=== PATIENT | female | born 1985 | race Caucasian/White ===

== ENCOUNTER 2016-09-30 12:54 | Observation (INO) | payer OTHER, MEDICAID ==
[2016-09-30] MEDS ORDERED: ONDANSETRON 4 MG/2 ML VIAL ONE ×2 (14:06→14:40)
--- NOTE | 2016-09-30 14:08 | EDPHY ---
H & P Stated Complaint: Started Metformin on Saturday and then w/ abd pain/ cramping Source: Patient Exam Limitations: No limitations - Personal History LMP (Females 10-55): 1-7 Days Ago Current Tetanus/Diphtheria Vaccine: Yes - Medical/Surgical History Hx Asthma: No Hx Chronic Respiratory Disease: No Hx Diabetes: Yes Hx Cardiac Disease: No Hx Renal Disease: No Hx Cirrhosis: No Hx Alcoholism: No Hx HIV/AIDS: No Hx Splenectomy or Spleen Trauma: No Other PMH: Ovarain cyst, - Social History Smoking Status: Never smoked Time Seen by Provider: 09/30/16 13:55 HPI/ROS: CHIEF COMPLAINT: Abdominal pain, HISTORY OF PRESENT ILLNESS: The patient is a 31-year-old female who presents with LUQ crampy non-radiating abdominal pain and tenesmus since last night. She was put on Metformin ER on Saturday and is concerned this is causing the symptoms. She initially felt nauseated and had diarrhea after starting the medication and developed the pain late last night. She admits recent sick contact from family members. LNMP last week. She denies fever, chest pain, shortness of breath. REVIEW OF SYSTEMS: Aside from elements discussed in the HPI, a comprehensive 10-point review of systems was reviewed and is negative. PAST MEDICAL HISTORY: GERD, cholecystectomy, scoliosis, ovarian cyst. SOCIAL HISTORY: Here with family. VITAL SIGNS: Reviewed by me GENERAL: Well-developed, well-nourished, resting comfortably in no respiratory distress. HEENT: Atraumatic. Eyes: No icterus, no injection. Mouth: moist mucous membranes. No erythema or lesions. Neck: supple with no adenopathy. LUNGS: Clear to auscultation bilaterally, no wheezes, rhonchi or rales. CARDIAC: Regular rate and rhythm, no rubs, murmurs or gallops. ABDOMEN: Obese. LUQ tenderness. Soft, nondistended, bowel sounds normal. BACK: Large surgical scar running from base of neck to tailbone. Left lower back tenderness inferior to left flank. No CVA tenderness. EXTREMITIES: No trauma. No edema. Range of motion is normal throughout. NEURO: Alert and oriented, grossly nonfocal. SKIN: Warm and dry, no rash. PSYCHIATRIC: Normal mentation, no agitation. Portions of this note were transcribed by a biomedical instrument technician. I personally performed a history, physical exam, medical decision making, and confirmed accuracy of information the transcribed note. (Destinee Elliott) Constitutional: Initial Vital Signs Temperature (C) 37.1 C 09/30/16 12:54 Heart Rate 89 09/30/16 12:54 Respiratory Rate 16 09/30/16 12:54 Blood Pressure 138/89 H 09/30/16 12:54 O2 Sat (%) 96 09/30/16 12:54 O2 Delivery Mode Room Air Allergies/Adverse Reactions: dextromethorphan Allergy (Verified 09/30/16 13:11) hydrocodone Allergy (Verified 09/30/16 13:11) abx Allergy (Uncoded 09/30/16 13:11) Home Medications: Medication Instructions Recorded Blue Pill For Ibs 09/30/16 metFORMIN HCL 09/30/16 Medical Decision Making - Diagnostics Imaging: Results: CT scan of the abdomen pelvis was obtained. I viewed the images independently on the PACS system. I discussed the results of the study with the radiologist. Impression: Concerning for appendicitis. Please see the full radiology report. (Destinee Elliott) ED Course/Re-evaluation: An IV was established and labs ordered. 1L IV saline administered for hydration , 1mg IV Dilaudid for pain. [place] [address]. Chemistries are largely unremarkable. Urinalysis has 25-50 red cells per high-power field. Patient underwent a CT scan without IV contrast to evaluate for potential kidney stone as well as other intra-abdominal causes. CT scan reported to me by Dr. Mann as suspicious for appendicitis with lymph nodes in the right lower quadrant as well as inflammatory changes of the appendix. On re-examination the patient continues to have some epigastric and left upper quadrant tenderness to palpation as well as right lower quadrant tenderness to palpation. Her body habitus makes it slightly difficult examination. Course was discussed with Dr. Hasmukh Sanchez. He will evaluate the patient in the emergency department for potential appendicitis. Please see Dr. Sanchez consultation for further information. (Destinee Elliott) The patient was turned over to me pending surgical consultation by Dr. Hasmukh Sanchez. The patient will be admitted for observation this evening. IV antibiotics have been ordered. (Marin Mirza) Differential Diagnosis: After obtaining the patient's history and performing an examination, differential diagnosis considered included but was not limited to appendicitis, cholecystitis, gastritis, pancreatitis, kidney stones, urinary tract infections and other causes. (Destinee Elliott) - Data Points Laboratory Results: Laboratory Results 09/30/16 15:00 09/30/16 15:00 09/30/16 09/30/16 15:00 14:15 WBC 13.38 H 10^3/uL (3.80-9.50) RBC 5.15 10^6/uL (4.18-5.33) Hgb 13.9 g/dL (12.6-16.3) Hct 42.1 % (38.0-47.0) MCV 81.7 fL (81.5-99.8) MCH 27.0 L pg (27.9-34.1) MCHC 33.0 g/dL (32.4-36.7) RDW 13.2 % (11.5-15.2) Plt Count 257 10^3/uL (150-400) MPV 9.3 fL (8.7-11.7) Neut % (Auto) 84.0 H % (39.3-74.2) Lymph % (Auto) 10.0 L % (15.0-45.0) [place] % (Auto) 4.9 % (4.5-13.0) Eos % (Auto) 0.4 L % (0.6-7.6) Baso % (Auto) 0.4 % (0.3-1.7) Nucleat RBC Rel Count 0.0 % (0.0-0.2) Absolute Neuts (auto) 11.24 H 10^3/uL (1.70-6.50) Absolute Lymphs (auto) 1.34 10^3/uL (1.00-3.00) Absolute Monos (auto) 0.65 10^3/uL (0.30-0.80) Absolute Eos (auto) 0.06 10^3/uL (0.03-0.40) Absolute Basos (auto) 0.05 10^3/uL (0.02-0.10) Absolute Nucleated RBC 0.00 10^3/uL (0-0.01) Immature Gran % 0.3 % (0.0-1.1) Immature Gran # 0.04 10^3/uL (0.00-0.10) VBG Lactic Acid 1.9 mmol/L (0.7-2.1) Sodium 138 mEq/L (134-144) Potassium 4.5 mEq/L (3.5-5.2) Chloride 100 mEq/L (97-110) Carbon Dioxide 24 mEq/l (22-31) Anion Gap 14 mEq/L (8-16) BUN 16 mg/dL (7-23) Creatinine 0.7 mg/dL (0.6-1.0) Estimated GFR > 60 Glucose 111 H mg/dL (70-100) Calcium 10.0 mg/dL (8.5-10.4) Total Bilirubin 1.0 mg/dL (0.1-1.4) Conjugated Bilirubin 0.3 mg/dL (0.0-0.5) Unconjugated Bilirubin 0.7 mg/dL (0.0-1.1) AST 38 IU/L (14-46) ALT 69 H IU/L (9-52) Alkaline Phosphatase 87 IU/L (38-126) Total Protein 8.2 g/dL (6.3-8.2) Albumin 4.7 g/dL (3.5-5.0) Lipase 81.0 IU/L (23-300) Beta HCG, Qual NEGATIVE Urine Color YELLOW Urine Appearance HAZY Urine pH 8.0 H (5.0-7.5) Ur Specific [place] 1.021 (1.002-1.030) Urine Protein NEGATIVE (NEGATIVE) Urine Ketones NEGATIVE (NEGATIVE) Urine Blood NEGATIVE (NEGATIVE) Urine Nitrate NEGATIVE (NEGATIVE) Urine Bilirubin NEGATIVE (NEGATIVE) Urine Urobilinogen NEGATIVE EU (0.2-1.0) Ur Leukocyte Esterase 1+ H (NEGATIVE) Urine RBC 25-50 H /hpf (0-3) Urine WBC 1-3 /hpf (0-3) Ur Epithelial Cells 1+ /lpf (NONE-1+) Urine Mucus TRACE /lpf (NONE-1+) Urine Glucose NEGATIVE (NEGATIVE) Medications Given: Discontinued Medications Hydromorphone HCl (Dilaudid) 1 mg IVP EDNOW ONE Stop: 09/30/16 14:15 Last Admin: 09/30/16 15:04 Dose: 1 mg Sodium Chloride (Ns) 1,000 mls @ 0 mls/hr IV ONCE ONE PRN Reason: Wide Open Stop: 09/30/16 14:15 Last Admin: 09/30/16 15:04 Dose: 1,000 mls Departure - Departure Disposition: [facility] Inpatient Acute Clinical Impression: Acute abdominal pain, Possible appendicitis Condition: Good Referrals: IN STATE,. [Primary Care Provider] - As per Instructions Report Scribed for: Destinee Elliott Report Scribed by: Rashawn Ye Date of Report: 09/30/16 Time of Report: 14:08
[2016-09-30] MEDS ORDERED: HYDROmorphONE/DILAUDID 1 MG/ML SYR IVP ONE (14:14)
[2016-09-30] MEDS ORDERED: NS 1,000 ML IV ONE (14:14)
[2016-09-30 14:33] LABS: COLOR YELLOW; LEUKOCYTE ESTERASE,URINE 1+ (NEGATIVE); NITRITE,URINE NEGATIVE (NEGATIVE)
[2016-09-30 14:39] LABS: MUCUS TRACE /lpf (NONE-1+); RBC,URINE 25-50 /hpf (0-3)
[2016-09-30 15:07] LABS: % IMMATURE GRANULYOCYTES 0.3 % (0.0-1.1); ABSOLUTE IMMATURE GRANULOCYTES 0.04 10^3/uL (0.00-0.10); ADD DIFF? NO; ADD MORPH? NO; ADD SCAN? NO; ATYPICAL LYMPHOCYTE FLAG 0 (0-99); FRAGMENT RBC FLAG 0 (0-99); HEMATOCRIT 42.1 % (38.0-47.0); HEMOGLOBIN 13.9 g/dL (12.6-16.3); LEFT SHIFT FLG 0 (0-99); LIPEMIA HEMOLYSIS FLAG 80 (0-99); MEAN CELL VOLUME 81.7 fL (81.5-99.8); MEAN PLATELET VOLUME 9.3 fL (8.7-11.7); PLATELET CLUMPS FLAG 30 (0-99); PLATELET COUNT 257 10^3/uL (150-400); RED BLOOD CELL COUNT 5.15 10^6/uL (4.18-5.33); RED CELL DISTRIBUTION WIDTH 13.2 % (11.5-15.2)
[2016-09-30 15:24] LABS: ALANINE AMINOTRANSFERASE 69 IU/L (9-52); ALBUMIN 4.7 g/dL (3.5-5.0); ALKALINE PHOSPHATASE 87 IU/L (38-126); ANION GAP 14 mEq/L (8-16); ASPARTATE AMINOTRANSFERASE 38 IU/L (14-46); BILIRUBIN-CONJUGATED 0.3 mg/dL (0.0-0.5); BILIRUBIN-UNCONJUGATED 0.7 mg/dL (0.0-1.1); CARBON DIOXIDE 24 mEq/l (22-31); CHLORIDE 100 mEq/L (97-110); CREATININE 0.7 mg/dL (0.6-1.0); GLOMERULAR FILTRATION RATE > 60; GLUCOSE 111 mg/dL (70-100); POTASSIUM 4.5 mEq/L (3.5-5.2); SODIUM 138 mEq/L (134-144); TOTAL PROTEIN 8.2 g/dL (6.3-8.2)
--- NOTE | 2016-09-30 16:52 | CT ---
CT Abdomen and Pelvis (Without Contrast) at 1629 hours History: Left-sided abdominal pain. Technique: Spiral images were acquired from the upper abdomen through the pelvis without intravenous or oral contrast, which limits the study. Dose reduction techniques were utilized. Findings: Abdomen: Bilateral kidneys demonstrate no nephrolithiasis or hydronephrosis. Thoracolumbar dextroscol iosis with thoracic fusion rods. At the right lung base, there is a pleural-based density measuring 1 5 mm, which may represent pleuroparenchymal scarring, especially given the patient's age. No pleural effusion. Gallbladder is surgically absent. No hepatosplenomegaly. No aortic aneurysm. No peripancreatic fluid. Pelvis: No evidence of distal ureteral calculi, hydroureter or bladder calculi. There are several ly mph nodes and inflammatory changes in the posterior right side of the pelvis just cephalad to the cec um with thickening of the appendix up to 10 mm, suspicious for acute appendicitis. No adnexal lesions . Moderate stool in the right colon. Impression: 1. No nephrolithiasis or hydronephrosis. 2. Suspect acute appendicitis. 3. Probable pleuroparenchymal scarring in the right lung base, for which follow-up CT chest in 3 to 6 months if there are no prior studies for comparison. Attention: This CT examination is specifically designed to evaluate patients who are clinically susp ected of having acute obstructive uropathy. This examination does not use radiographic contrast, and as such, provides only a limited evaluation of the abdomen, pelvis and retroperitoneum. If there is further clinical suspicion for pathological conditions other than obstructive uropathy, a complete C T evaluation of the abdomen and pelvis utilizing intravenous, oral, and rectal contrast should be con sidered. Findings and recommendations discussed with Emergency Department physician, Dr. Destinee Elliott at 1635 hours today. Final report concurs with initial preliminary interpretation.
[2016-09-30] MEDS ORDERED: ONDANSETRON DISINTEGRATING 4 MG TAB PO PRN (18:10)
[2016-09-30] MEDS ORDERED: METOCLOPRAMIDE 10 MG/2 ML VIAL IVP PRN (18:10)
--- NOTE | 2016-09-30 18:23 | PDCONSULT ---
Home [employer] Worker Note: 31 y/o female with one day hx LUQ abd pain, nausea, vomiting and microhematuria seen in ED by Dr. Elliott. Non-contrast CT showed a 9mm appendix with mesenteric adenopathy and surgical consultation was requested. My exam was equivocal for appendicitis and images were reviewed with Dr. Mann. I discussed options with the patient including antibiotic therapy vs. appendectomy. She is comfortable with empiric antibiotic therapy and will admit for observation and response to treatment. Full note to follow. Henry Sanchez MD, FACS
[2016-09-30] MEDS: PIPERACILLIN/TAZO 3.375 GM/DEX 50 ML IV SCH (19:36)
--- NOTE | 2016-09-30 20:45 | PDGENHP ---
History and Physical - Chief Complaint LUQ abd pain - History of Present Illness 31 y/o female who started having abd pain late yesterday associated with nausea and emesis. She felt better this morning, but the pain recurred and was associated with additional nausea and emesis. She presented to the ED and was seen by Dr. Destinee Elliott, who performed an extensive evaluation including a non- contrast CT which showed possible appendicitis and surgical consultation was requested. At the time I saw the patient she reported that the pain had subsided as had her nausea. One week ago she had "food poisoning" starting 30 minutes after eating [place] food that resulted in nausea, vomiting and diarrhea that lasted 24 hours. She restarted Metformin yesterday at the advice of her PCP. History Information - Allergies/Home Medication List Allergies/Adverse Reactions: dextromethorphan Allergy (Verified 09/30/16 18:34) Itching hydrocodone Allergy (Verified 09/30/16 18:34) Other-Enter Comments abx Allergy (Uncoded 09/30/16 13:11) Home Medications: Dicyclomine [Bentyl 10 MG (*)] 20 mg PO DAILY 09/30/16 [Last Taken 09/29/16] Metformin HCl [Metformin HCl ER] 500 mg PO HS 09/30/16 [Last Taken 09/29/16] Omeprazole/Sodium Bicarbonate [Zegerid 20 mg Capsule] 20 each PO DAILY 09/30/16 [Last Taken 09/30/16] I have personally reviewed and updated: family history, medical history, social history (, accompanied in the ED by her mother and her [id number] ( with whom she lives)), surgical history - Past Medical History diabetes type 2, GERD Additional medical history: obesity (BMI 46) - Surgical History Reports: cholecystectomy, spinal surgery (scoliosis surgery T1-12 age 12) - Family History Positive for: diabetes type II - Social History Smoking Status: Never smoked Alcohol Use: None Drug Use: None 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 Review of Systems Constitutional: Reports: weight loss EENMT: Reports: no symptoms Cardiac: Reports: no symptoms Respiratory: Reports: other (treated for RLL pneumonia in 2016) Gastrointestinal: Reports: vomitting, abdominal pain, nausea Genitourinary: Reports: no symptoms, hematuria Muscolosketal: Reports: no symptoms Skin: Reports: no symptoms Neurological: Reports: no symptoms Hematologic/Lymphatic: Reports: no symptoms Immunologic/Allergy: Reports: no symptoms Physical Exam Temp Pulse Resp BP Pulse Ox 36.6 C 91 16 119/79 96 09/30/16 20:01 09/30/16 20:01 09/30/16 20:01 09/30/16 20:01 09/30/16 20:01 Constitutional: no apparent distress Eyes: PERRL Ears, Nose, Mouth, Throat: moist mucous membranes Cardiovascular: regular rate and rhythym Peripheral Pulses: 2+: dorsalis-pedis (R), dorsalis-pedis (L) Respiratory: no respiratory distress, clear to auscultation, reduced air movement Gastrointestinal: normoactive bowel sounds, no palpable masses, other (mild lower abdominal tenderness L > R, Rovsing's sign negative, no gaurding, well healed lap port incisions) Skin: warm Neurologic: AAOx3 Psychiatric: interacting appropriately, not anxious, poor insight Lymph, Heme, Immunologic: no cervical LAD, no supraclavicular LAD Lab Data & Imaging Review 09/30/16 15:00 09/30/16 15:00 WBC 13.38 10^3/uL (3.80-9.50) H 09/30/16 15:00 RBC 5.15 10^6/uL (4.18-5.33) 09/30/16 15:00 Hgb 13.9 g/dL (12.6-16.3) 09/30/16 15:00 Hct 42.1 % (38.0-47.0) 09/30/16 15:00 MCV 81.7 fL (81.5-99.8) 09/30/16 15:00 MCH 27.0 pg (27.9-34.1) L 09/30/16 15:00 MCHC 33.0 g/dL (32.4-36.7) 09/30/16 15:00 RDW 13.2 % (11.5-15.2) 09/30/16 15:00 Plt Count 257 10^3/uL (150-400) 09/30/16 15:00 MPV 9.3 fL (8.7-11.7) 09/30/16 15:00 Neut % (Auto) 84.0 % (39.3-74.2) H 09/30/16 15:00 Lymph % (Auto) 10.0 % (15.0-45.0) L 09/30/16 15:00 [place] % (Auto) 4.9 % (4.5-13.0) 09/30/16 15:00 Eos % (Auto) 0.4 % (0.6-7.6) L 09/30/16 15:00 Baso % (Auto) 0.4 % (0.3-1.7) 09/30/16 15:00 Nucleat RBC Rel Count 0.0 % (0.0-0.2) 09/30/16 15:00 Absolute Neuts (auto) 11.24 10^3/uL (1.70-6.50) H 09/30/16 15:00 Absolute Lymphs (auto) 1.34 10^3/uL (1.00-3.00) 09/30/16 15:00 Absolute Monos (auto) 0.65 10^3/uL (0.30-0.80) 09/30/16 15:00 Absolute Eos (auto) 0.06 10^3/uL (0.03-0.40) 09/30/16 15:00 Absolute Basos (auto) 0.05 10^3/uL (0.02-0.10) 09/30/16 15:00 Absolute Nucleated RBC 0.00 10^3/uL (0-0.01) 09/30/16 15:00 Immature Gran % 0.3 % (0.0-1.1) 09/30/16 15:00 Immature Gran # 0.04 10^3/uL (0.00-0.10) 09/30/16 15:00 VBG Lactic Acid 1.9 mmol/L (0.7-2.1) 09/30/16 15:00 Sodium 138 mEq/L (134-144) 09/30/16 15:00 Potassium 4.5 mEq/L (3.5-5.2) 09/30/16 15:00 Chloride 100 mEq/L (97-110) 09/30/16 15:00 Carbon Dioxide 24 mEq/l (22-31) 09/30/16 15:00 Anion Gap 14 mEq/L (8-16) 09/30/16 15:00 BUN 16 mg/dL (7-23) 09/30/16 15:00 Creatinine 0.7 mg/dL (0.6-1.0) 09/30/16 15:00 Estimated GFR > 60 09/30/16 15:00 Glucose 111 mg/dL (70-100) H 09/30/16 15:00 Calcium 10.0 mg/dL (8.5-10.4) 09/30/16 15:00 Total Bilirubin 1.0 mg/dL (0.1-1.4) 09/30/16 15:00 Conjugated Bilirubin 0.3 mg/dL (0.0-0.5) 09/30/16 15:00 Unconjugated Bilirubin 0.7 mg/dL (0.0-1.1) 09/30/16 15:00 AST 38 IU/L (14-46) 09/30/16 15:00 ALT 69 IU/L (9-52) H 09/30/16 15:00 Alkaline Phosphatase 87 IU/L (38-126) 09/30/16 15:00 Total Protein 8.2 g/dL (6.3-8.2) 09/30/16 15:00 Albumin 4.7 g/dL (3.5-5.0) 09/30/16 15:00 Lipase 81.0 IU/L (23-300) 09/30/16 15:00 TSH 0.919 uIU/mL (0.465-4.680) 09/30/16 15:00 Beta HCG, Qual NEGATIVE 09/30/16 15:00 Urine Color YELLOW 09/30/16 14:15 Urine Appearance HAZY 09/30/16 14:15 Urine pH 8.0 (5.0-7.5) H 09/30/16 14:15 Ur Specific [place] 1.021 (1.002-1.030) 09/30/16 14:15 Urine Protein NEGATIVE (NEGATIVE) 09/30/16 14:15 Urine Ketones NEGATIVE (NEGATIVE) 09/30/16 14:15 Urine Blood NEGATIVE (NEGATIVE) 09/30/16 14:15 Urine Nitrate NEGATIVE (NEGATIVE) 09/30/16 14:15 Urine Bilirubin NEGATIVE (NEGATIVE) 09/30/16 14:15 Urine Urobilinogen NEGATIVE EU (0.2-1.0) 01/01/17 14:15 Ur Leukocyte Esterase 1+ (NEGATIVE) H 09/30/16 14:15 Urine RBC 25-50 /hpf (0-3) H 09/30/16 14:15 Urine WBC 1-3 /hpf (0-3) 09/30/16 14:15 Ur Epithelial Cells 1+ /lpf (NONE-1+) 09/30/16 14:15 Urine Mucus TRACE /lpf (NONE-1+) 09/30/16 14:15 Ur Culture Indicated? INDICATED (NI) H 09/30/16 14:15 Urine Glucose NEGATIVE (NEGATIVE) 09/30/16 14:15 Visualized and Interpreted Chest x-ray results: Yes Chest X-Ray results: other (RLL nodule/scarring possible related to prior pneumonia, no outside studies for comparison) Visualized and Interpreted imaging results: Yes Interpretation: CT reviewed with Dr. Mann, non contrast CT: RLQ appendix with minimal dilatation 9mm, some mesenteric adenopathy, no free fluid, no appendicolith, no free air, moderate stool in the colon, enlarged liver with surgically absent gallbladder Visualized and Interpreted EKG results: No Assessment & Plan Assessment: 1. Abdominal pain, unclear etiology-CT scan shows possible appendicitis/this does not correlate with the patients clinical presentation however 2. type II DM recently started on Metformin 3. obesity with BMI 46 4. Hepatic steatosis with mild elevation transaminase 5. RLL pulmonary nodule/scar consistant with prior pneumonia/[address] recommended 6. hematuria/possible UTI 7. GERD I discussed the findings with patient and her family members. I am not convinced that she has appendicitis. We discussed options of management which include: 1. appendectomy-lap vs. open 2. antibiotic therapy and observation She is a high risk (ASA class III) patient from an anesthetic viewpoint and does meet criteria for non-operative management. We discussed the risk of progressing to perforation while on antibiotics or recurrence in the future despite successful treatment of this episode. She is in favor of a trial of non-operative therapy and I recommended admission for observation and IV Zosyn 3.375 gm q6H. If her symptoms improve I would transition to oral Augmentin for a 7-10 day course total. If she worsens on IV Zosyn I would proceed to appendectomy. Henry Sanchez MD, FACS
[2016-09-30] MEDS: HYDROmorphONE/DILAUDID 1 MG/ML SYR IVP PRN (21:01)
[2016-09-30] MEDS: LR 1,000 ML IV SCH (21:01)
[2016-09-30] MEDS: ONDANSETRON 4 MG/2 ML VIAL IVP PRN (21:01)
[2016-09-30] MEDS: ACETAMINOPHEN 325 MG TAB PO PRN (21:11)
[2016-10-01] MEDS ORDERED: PIPERACILLIN/TAZO 3.375 GM/DEX 50 ML IV SCH
[2016-10-01] MEDS: HYDROmorphONE/DILAUDID 1 MG/ML SYR IVP PRN ×2 (00:05→05:17)
[2016-10-01] MEDS: PIPERACILLIN/TAZO 3.375 GM/DEX 50 ML IV SCH ×2 (00:05→05:17)
[2016-10-01 04:18] LABS: HEMOGLOBIN A1C 5.9 % (4.0-6.0)
[2016-10-01] MEDS: LR 1,000 ML IV SCH (05:16)
[2016-10-01] MEDS: ONDANSETRON 4 MG/2 ML VIAL IVP PRN (05:17)
[2016-10-01 05:41] LABS: % IMMATURE GRANULYOCYTES 0.1 % (0.0-1.1); ABSOLUTE IMMATURE GRANULOCYTES 0.01 10^3/uL (0.00-0.10); ADD DIFF? NO; ADD MORPH? NO; ADD SCAN? NO; ATYPICAL LYMPHOCYTE FLAG 10 (0-99); FRAGMENT RBC FLAG 0 (0-99); HEMATOCRIT 35.6 % (38.0-47.0); HEMOGLOBIN 11.7 g/dL (12.6-16.3); LEFT SHIFT FLG 0 (0-99); LIPEMIA HEMOLYSIS FLAG 80 (0-99); MEAN CELL HEMOGLOBIN 27.3 pg (27.9-34.1); MEAN CELL HEMOGLOBIN CONCENTR. 32.9 g/dL (32.4-36.7); MEAN CELL VOLUME 83.2 fL (81.5-99.8); MEAN PLATELET VOLUME 9.4 fL (8.7-11.7); PLATELET CLUMPS FLAG 0 (0-99); PLATELET COUNT 195 10^3/uL (150-400); RED BLOOD CELL COUNT 4.28 10^6/uL (4.18-5.33); RED CELL DISTRIBUTION WIDTH 13.4 % (11.5-15.2)
[2016-10-01 05:53] LABS: ALANINE AMINOTRANSFERASE 56 IU/L (9-52); ALBUMIN 3.6 g/dL (3.5-5.0); ALKALINE PHOSPHATASE 71 IU/L (38-126); ANION GAP 10 mEq/L (8-16); ASPARTATE AMINOTRANSFERASE 28 IU/L (14-46); BILIRUBIN,TOTAL 1.3 mg/dL (0.1-1.4); CARBON DIOXIDE 26 mEq/l (22-31); CHLORIDE 102 mEq/L (97-110); CREATININE 0.8 mg/dL (0.6-1.0); GLOMERULAR FILTRATION RATE > 60; GLUCOSE 100 mg/dL (70-100); POTASSIUM 4.3 mEq/L (3.5-5.2); SODIUM 138 mEq/L (134-144); TOTAL PROTEIN 6.5 g/dL (6.3-8.2)
[2016-10-01] MEDS ORDERED: HYDROCODONE/APAP 5/325 TAB PO PRN (11:49)
[2016-10-01] MEDS ORDERED: PSEUDOEPHEDRINE HCL 30 MG TAB PO PRN (11:51)
[2016-10-01] MEDS: ACETAMINOPHEN 325 MG TAB PO PRN (11:53)
--- NOTE | 2016-10-01 11:54 | SOAPPROG ---
SOAP Progress Note Assessment/Plan: Assessment: abdominal pain of unknown etiology, resolving appendix 9 mm in diameter but clinical exam not convincing for appendicitis Plan: continue antibiotic therapy for possible early appendicitis x 1 week discharge home if able to tolerate oral intake 10/01/16 11:52 Subjective: pain resolving nausea resolving Objective: Vital Signs Temp Pulse Resp BP Pulse Ox 36.6 C 75 16 127/79 H 92 10/01/16 08:31 10/01/16 08:31 10/01/16 08:31 10/01/16 08:31 10/01/16 08:31 Laboratory Results 10/01/16 05:05 10/01/16 05:05 09/30/16 10/01/16 10/02/16 05:59 05:59 05:59 Intake Total 1100 Output Total 1000 Balance 100 Physical Exam - Physical Exam General Appearance: alert Abdomen: normal bowel sounds, non-tender, soft ICD10 Worksheet Patient Problems: Problems Problem Status Diagnosed Acute abdominal pain Acute
[2016-10-01] MEDS ORDERED: DOCUSATE SODIUM 100 MG CAP PO SCH (12:00)
[2016-10-01] MEDS ORDERED: PANTOPRAZOLE SODIUM 40 MG TAB PO SCH (12:00)
[2016-10-01] MEDS ORDERED: DICYCLOMINE 10 MG CAP PO SCH (12:00)
[2016-10-01] MEDS ORDERED: AMOXICILLIN/CLAVULANATE POT 875/125 MG TAB PO SCH (12:00)
[2016-10-01] MEDS: IBUPROFEN 600 MG TAB PO SCH ×3 (12:02→16:22)
[2016-10-01] MEDS ORDERED: OXYCODONE/APAP 5/325 TAB PO PRN (13:20)
--- NOTE | 2016-10-01 13:48 | GDS ---
[f rep st] DISCHARGE SUMMARY DIAGNOSIS: Abdominal pain with possible early appendicitis. ADMITTING PHYSICIAN: Dereck Sanchez MD. PROCEDURES: None. HISTORY OF PRESENT ILLNESS AND HOSPITAL COURSE: Douglas is a 31-year-old woman who presented to the em ergency department with abdominal pain associated with nausea and vomiting. She was found to have le ukocytosis on presentation to the emergency department. A noncontrast CT showed a 9 mm appendix with a query of early appendicitis. Dr. Sanchez with surgery was consulted and her clinical exam was not co nsistent with appendicitis. Her pain and nausea had subsided. She was subsequently admitted for obs ervation. Appendectomy versus antibiotic therapy were discussed. She opted for a trial of nonoperat linda therapy with antibiotics. The following morning, her pain and nausea had resolved. She is lauren ating a diet and would like to be discharged home with instructions to follow up with Dr. Sanchez in 1-2 weeks. She will continue Augmentin 875 mg twice daily x7 days, Percocet 5/325 mg 1-2 tablets p.o. q.4 hours p.r.n. pain, Colace 100 mg p.o. twice daily, ibuprofen 600 mg 4 times daily, Zofran 4 mg p.o. q.4 destiny rs p.r.n. nausea, Sudafed as needed for nasal congestion. She will continue her home medications, wh ich include metformin at 500 mg nightly, omeprazole 20 mg daily, and Bentyl 20 mg daily. /[id number]/MODL
[2016-10-01 15:56] VITALS: BP 131/83; PULSE 83; RESP 16; TEMP 98.4; O2SAT 90
== END 2016-10-01 16:43 | disposition home or self-care (01) ==
LOC: INTOOBSV 18:03 → F1N 20:03
PROVIDERS: ADMIT Surgery; ATTEND Surgery
DX: R10.12 Left upper quadrant pain (principal); R11.2 Nausea with vomiting, unspecified; K21.9 Gastro-esophageal reflux disease without esophagitis; E11.9 Type 2 diabetes mellitus without complications; E66.9 Obesity, unspecified; Z68.42 Body mass index [BMI] 45.0-49.9, adult; Z87.01 Personal history of pneumonia (recurrent)
CPT/HCPCS: 74176; 96361; 96374; 99285; G0378; J1170; J2405; J2543; J2765